=== PATIENT | female | born 1965 | race Caucasian/White ===

== ENCOUNTER 2020-07-05 12:35 | Emergency (ER) | payer BC, OTHER ==
[~2020-07-05] VITALS: Ht 165.1 cm; Wt 49.0 kg
[2020-07-05] MEDS ORDERED: LACTATED RINGERS 1,000 ML IV ONE (13:21)
[2020-07-05 13:24] LABS: BASOPHILS % (AUTO) 0 % (0-10); EOSINOPHILS # (AUTO) 0.1 10^3/uL (0.0-0.3); EOSINOPHILS % (AUTO) 2 % (0-10); HEMATOCRIT 40 % (35-52); HEMOGLOBIN 13.1 g/dL (11.5-16.0); LYMPHOCYTES # (AUTO) 0.6 10^3/uL (1.0-4.0); LYMPHOCYTES % (AUTO) 9 % (12-44); MEAN CORPUSCULAR HEMOGLOBIN 30 pg (25-34); MEAN CORPUSCULAR HGB CONC 33 g/dL (32-36); MEAN CORPUSCULAR VOLUME 92 fL (80-99); MEAN PLATELET VOLUME 11.1 fL (9.0-12.2); MONOCYTES # (AUTO) 0.4 10^3/uL (0.0-1.0); MONOCYTES % (AUTO) 7 % (0-12); NEUTROPHILS # (AUTO) 5.4 10^3/uL (1.8-7.8); NEUTROPHILS % (AUTO) 82 % (42-75); PLATELET COUNT 170 10^3/uL (130-400); WHITE BLOOD COUNT 6.6 10^3/uL (4.3-11.0)
[2020-07-05 13:35] LABS: ALBUMIN 4.7 GM/DL (3.2-4.5); CHLORIDE 102 MMOL/L (98-107); SODIUM 139 MMOL/L (135-145)
[2020-07-05 13:36] LABS: CALCIUM 9.8 MG/DL (8.5-10.1)
[2020-07-05 13:37] LABS: GLUCOSE 95 MG/DL (70-105); TOTAL PROTEIN 7.3 GM/DL (6.4-8.2)
[2020-07-05 13:38] LABS: CARBON DIOXIDE 25 MMOL/L (21-32); FIBRIN DEGRADATION PRODUCTS 1.54 UG/ML (0.00-0.49); PROTHROMBIN TIME PATIENT 13.5 SEC (12.2-14.7)
[2020-07-05 13:39] LABS: BILIRUBIN,TOTAL 0.6 MG/DL (0.1-1.0)
[2020-07-05 13:41] LABS: ALKALINE PHOSPHATASE 52 U/L (40-136); CREATININE SERUM 0.73 MG/DL (0.60-1.30); GFR ESTIMATED > 60
[2020-07-05 13:42] LABS: BUN/CREATININE RATIO 21
[2020-07-05 13:44] LABS: ALANINE AMINOTRANSFERASE 18 U/L (0-55); CREATINE KINASE 68 U/L (29-168)
[2020-07-05 14:35] LABS: BILIRUBIN,URINE NEGATIVE (NEGATIVE); CLARITY,URINE CLEAR; COLOR,URINE YELLOW; GLUCOSE, URINE (UA) NEGATIVE (NEGATIVE); KETONES,URINE 1+ (NEGATIVE); LEUKOCYTE ESTERASE ,URINE NEGATIVE (NEGATIVE); NITRITE,URINE NEGATIVE (NEGATIVE); PROTEIN,URINE NEGATIVE (NEGATIVE)
[2020-07-05 15:49] LABS: BACTERIA,URINE TRACE /HPF
[2020-07-05] MEDS ORDERED: DOXY100T2 PO (15:50)
--- NOTE | 2020-07-05 15:51 | ED General ---
General Chief Complaint: Bite-Animal/Human/Insect Stated Complaint: SPIDER BITE ON CHEST Nursing Triage Note: Pt ambulates to triage with c/o brown recluse bite. Pt reports on the evening of 07/04/20 she felt a bite on her chest. Pt reports she was bit by a spider she believes to be a brown recluse. Pt reports golf ball sized area or erythema et macular rash to torso. Pt reports low grade fever et palpitations. A&OX4. Nursing Sepsis Screen: Possible Severe Sepsis Risk Allergies and Home Medications Allergies Coded Allergies: No Known Drug Allergies (Unverified , 07/05/20) Home Medications Doxycycline Hyclate 100 Mg Tablet, 100 MG PO BID Prescribed by: DAISHA ZHAO on 07/05/20 1550 Past Fhkkili-[id number]-Lbptfb Hx Patient Social History Alcohol Use: Denies Use Recreational Drug Use: No Smoking Status: Never a Smoker 2nd Hand Smoke Exposure: No Recent Foreign Travel: No Contact w/Someone Who Travel: No Recent Infectious Disease Expo: No Recent Hopitalizations: No Seasonal Allergies Seasonal Allergies: No Past Medical History Surgeries: No Respiratory: No Cardiac: No Neurological: No Genitourinary: No Gastrointestinal: No Musculoskeletal: No Endocrine: No HEENT: No Cancer: No Psychosocial: No Integumentary: No Blood Disorders: No Physical Exam Vital Signs Vital Signs - First Documented 07/05/20 12:45 Temp 36.2 Pulse 106 Resp 18 B/P (MAP) 142/69 (93) Pulse Ox 98 O2 Delivery Room Air Capillary Refill : Less Than 3 Seconds Height, Weight, BMI Height: '" Weight: lbs. oz. kg; 17.00 BMI Method: Progress/Results/Core Measures Suspected Sepsis Recent Fever Within 48 Hours: Yes Infection Criteria Present: Suspected New Infection New/Unexplained Altered Menta: No Sepsis Screen: Possible Severe Sepsis Risk SIRS Temperature: Pulse: 106 Respiratory Rate: 18 Laboratory Tests 07/05/20 13:15: White Blood Count 6.6 Blood Pressure 142 /69 Mean: 93 Laboratory Tests 07/05/20 13:15: Creatinine 0.73, INR Comment 1.0, Platelet Count 170, Total Bilirubin 0.6 Results/Orders Lab Results Laboratory Tests Test 07/05/20 13:15 07/05/20 13:27 07/05/20 14:17 Range/Units White Blood Count 6.6 4.3-11.0 10^3/uL Red Blood Count 4.37 3.80-5.11 10^6/uL Hemoglobin 13.1 11.5-16.0 g/dL Hematocrit 40 35-52 % Mean Corpuscular Volume 92 80-99 fL Mean Corpuscular Hemoglobin 30 25-34 pg Mean Corpuscular Hemoglobin Concent 33 32-36 g/dL Red Cell Distribution Width 13.2 10.0-14.5 % Platelet Count 170 130-400 10^3/uL Mean Platelet Volume 11.1 9.0-12.2 fL Immature Granulocyte % (Auto) 0 % Neutrophils (%) (Auto) 82 H 42-75 % Lymphocytes (%) (Auto) 9 L 12-44 % Monocytes (%) (Auto) 7 0-12 % Eosinophils (%) (Auto) 2 0-10 % Basophils (%) (Auto) 0 0-10 % Neutrophils # (Auto) 5.4 1.8-7.8 10^3/uL Lymphocytes # (Auto) 0.6 L 1.0-4.0 10^3/uL Monocytes # (Auto) 0.4 0.0-1.0 10^3/uL Eosinophils # (Auto) 0.1 0.0-0.3 10^3/uL Basophils # (Auto) 0.0 0.0-0.1 10^3/uL Immature Granulocyte # (Auto) 0.0 0.0-0.1 10^3/uL Prothrombin Time 13.5 12.2-14.7 SEC INR Comment 1.0 0.8-1.4 Activated Partial Thromboplast Time 31 24-35 SEC Fibrinogen 325 221-496 MG/DL D-Dimer 1.54 H 0.00-0.49 UG/ML Sodium Level 139 135-145 MMOL/L Potassium Level 4.0 3.6-5.0 MMOL/L Chloride Level 102 98-107 MMOL/L Carbon Dioxide Level 25 21-32 MMOL/L Anion Gap 12 5-14 MMOL/L Blood Urea Nitrogen 15 7-18 MG/DL Creatinine 0.73 0.60-1.30 MG/DL Estimat Glomerular Filtration Rate > 60 BUN/Creatinine Ratio 21 Glucose Level 95 70-105 MG/DL Calcium Level 9.8 8.5-10.1 MG/DL Corrected Calcium 8.5-10.1 MG/DL Total Bilirubin 0.6 0.1-1.0 MG/DL Aspartate Amino Transf (AST/SGOT) 20 5-34 U/L Alanine Aminotransferase (ALT/SGPT) 18 0-55 U/L Alkaline Phosphatase 52 40-136 U/L Total Creatine Kinase 68 29-168 U/L C-Reactive Protein High Sensitivity 0.10 0.00-0.50 MG/DL Total Protein 7.3 6.4-8.2 GM/DL Albumin 4.7 H 3.2-4.5 GM/DL Group A Streptococcus Screen NEGATIVE NEGATIVE Urine Color YELLOW Urine Clarity CLEAR Urine pH 6.0 5-9 Urine Specific Ledger <=1.005 1.016-1.022 Urine Protein NEGATIVE NEGATIVE Urine Glucose (UA) NEGATIVE NEGATIVE Urine Ketones 1+ H NEGATIVE Urine Nitrite NEGATIVE NEGATIVE Urine Bilirubin NEGATIVE NEGATIVE Urine Urobilinogen 0.2 < = 1.0 MG/DL Urine Leukocyte Esterase NEGATIVE NEGATIVE Urine RBC (Auto) NEGATIVE NEGATIVE Urine RBC NONE /HPF Urine WBC NONE /HPF Urine Crystals NONE /LPF Urine Bacteria TRACE /HPF Urine Casts NONE /LPF Urine Mucus NEGATIVE /LPF Urine Culture Indicated NO My Orders Orders - DAISHA SHEIKH MD Cbc With Automated Diff (07/05/20 13:04) Comprehensive Metabolic Panel (07/05/20 13:04) Hs C Reactive Protein (07/05/20 13:04) Ed Iv/Invasive Line Start (07/05/20 13:04) Creatine Kinase (07/05/20 13:09) Fibrin Degradation Products (07/05/20 13:09) Protime With Inr (07/05/20 13:09) Partial Thromboplastin Time (07/05/20 13:09) Ua Culture If Indicated (07/05/20 13:09) Fibrinogen (07/05/20 13:09) Direct Antiglobulin Test (07/05/20 13:09) Rapid Strep A Screen (07/05/20 13:11) Lactated Ringers (Lr 1000 Ml Iv Solution (07/05/20 13:21) Medications Given in ED Current Medications Medications Dose Ordered Sig/Marcia Route Start Time Stop Time Status Last Admin Dose Admin Lactated Ringer's 1,000 ml @ 0 mls/hr Q0M ONCE IV 07/05/20 13:21 07/05/20 13:22 DC 07/05/20 13:27 0 MLS/HR Vital Signs/I&O 07/05/20 12:45 Temp 36.2 Pulse 106 Resp 18 B/P (MAP) 142/69 (93) Pulse Ox 98 O2 Delivery Room Air Capillary Refill : Less Than 3 Seconds Blood Pressure Mean: 93 Departure Impression Primary Impression: Spider bite wound Qualified Codes: T63.301A - Toxic effect of unspecified spider venom, accidental (unintentional), initial encounter Additional Impression: Rash Disposition: HOME, SELF-CARE Condition: Stable Departure-Patient Inst. Decision time for Depature: 15:48 Referrals: MARSHA HOWELL MD (PCP/Family) Primary Care Physician Patient Instructions: Spider Bites Add. Discharge Instructions: Follow-up with your primary care provider on Tuesday. Return to care if you have worsening symptoms. Feel free to use antihistamines to help with rash and itching. Complete the prophylactic doxycycline antibiotic as prescribed. You may take ibuprofen and/or Tylenol (acetaminophen) per package instructions for pain. All discharge instructions reviewed with patient and/or family. Voiced understanding. Scripts Doxycycline Hyclate (Doxycycline Hyclate) 100 Mg Tablet 100 MG PO BID, #14 TAB 0 Refills Prov: DAISHA SHEIKH MD 07/05/20 DAISHA SHEIKH MD Jul 05, 2020 15:51
[2020-07-05 16:06] VITALS: BP 142/69
== END 2020-07-05 16:06 | disposition home or self-care (01) ==
LOC: ER 12:36
DX: T63.331A Toxic effect of venom of brown recluse spider, accidental (unintentional), initial encounter (principal); R21 Rash and other nonspecific skin eruption
CPT/HCPCS: 36415; 80053; 81000; 82550; 85025; 85379; 85384; 85610; 85730; 86141; 86880; 87430